=== PATIENT | female | born 1970 | race Caucasian/White ===

== ENCOUNTER → 2018-10-14 | Emergency (ER) | payer BC ==
[~2018-10-14] MED LIST: Potassium Chloride 20 MEQ/100 ML PREMIX BAG ONE
[2018-10-14 11:57] LABS: INR-International Normal Ratio 1.1; Prothrombin Time 14.6 SEC (12.0-14.7)
[2018-10-14 11:58] LABS: PTT 28.1 SEC (22.9-36.1)
[2018-10-14 12:07] LABS: ALT (SGPT) 68 U/L (8-55); AST (SGOT) 104 U/L (5-34); Albumin 3.8 g/dL (3.5-5.0); Alkaline Phosphatase 927 U/L (40-150); Anion Gap 21 mmol/L (10-20); BUN (Urea Nitrogen) 21 mg/dL (7.0-18.7); Bilirubin, Total 3.6 mg/dL (0.2-1.2); Calc. Creatinine Clearance 0 mL/min (70-130); Calcium 10.1 mg/dL (7.8-10.44); Estimated GFR-MDRD 57; Globulin 2.8 g/dL (2.4-3.5); Glucose 125 mg/dL (70-105); Protein, Total 6.6 g/dL (6.0-8.3)
[2018-10-14 12:12] LABS: #Basophils 0.1 thou/uL (0.0-0.2); #Lymphocytes 0.8 thou/uL (1.20-3.40); #Monocytes 0.3 thou/uL (0.11-0.59); #Neutrophils 4.7 thou/uL (1.40-6.50); %Basophils 1.2 % (0.0-1.0); %Eosinophils 0.3 % (0.0-10.0); %Lymphocytes 13.8 % (21.0-51.0); %Monocytes 5.4 % (0.0-10.0); %Neutrophils 79.4 % (42.0-75.0); Chloride 85 mmol/L (98-107); Hemoglobin 11.5 g/dL (12.0-16.0); Mean Corpuscular HGB CONC 35.1 g/dL (32.0-36.0); Mean Corpuscular Hemoglobin 32.2 pg (27.0-31.0); Mean Corpuscular Volume 91.5 fL (78.0-98.0); Mean Platelet Volume 8.2 fL (7.4-10.4); Platelet Count 84 thou/uL (130-400); RBC Distribution Width 14.9 % (11.5-14.5); Red Blood Cell (RBC) Count 3.58 mill/uL (4.20-5.40); Sodium 146 mmol/L (136-145); White Blood Cell (WBC) Count 5.9 thou/uL (4.8-10.8)
[2018-10-14 12:13] LABS: Carbon Dioxide 43 mmol/L (22-29); Potassium 2.2 mmol/L (3.5-5.1)
[2018-10-14 12:16] LABS: MDiff Complete? YES; Manual Diff?? YES; Platelet Morphology Comment Appears Decreased
--- NOTE | 2018-10-14 12:17 | RAD ---
CHEST 1 VIEW: Date: 10/14/18 HISTORY: Dyspnea. COMPARISON: 09/26/15. FINDINGS: Cardiac silhouette is magnified and upper limits of normal in size. Pulmonary vasculature is unremark able. Ill-defined opacity at the right lung base obscures the lateral margin of the right hemidiaphra gm with some blunting of the right lateral costophrenic angle. Left lung is clear. No evidence of pne umothorax. IMPRESSION: Right basilar infiltrate and probable small amount of right pleural fluid. Clinical correlation regar ding other signs and symptoms of right basilar pneumonitis is required. POS: [facility]
[2018-10-14 12:23] LABS: CKMB 4.9 ng/mL (0-6.6)
== END ==
LOC: BURERS 11:21
DX: J90 Pleural effusion, not elsewhere classified (principal); C34.91 Malignant neoplasm of unspecified part of right bronchus or lung; C78.7 Secondary malignant neoplasm of liver and intrahepatic bile duct; E87.6 Hypokalemia; I10 Essential (primary) hypertension; F41.9 Anxiety disorder, unspecified; Z79.899 Other long term (current) drug therapy; Z87.891 Personal history of nicotine dependence
CPT/HCPCS: 71045; 80053; 82140; 82553; 83880; 84484; 85025; 85610; 85730; 93005; 96374; J3480